=== PATIENT | male | born 1960 | race Hispanic/Latino ===

== ENCOUNTER 2017-02-20 10:51 | Emergency (ER) | payer OTHER, SELFPAY ==
[2017-02-20] MEDS ORDERED: predniSONE 20 MG TAB ONE (12:49)
--- NOTE | 2017-02-20 14:56 | RAD ---
PA AND LATERAL CHEST XRAY: DATE: 02/20/17. HISTORY: Chest pain. COMPARISON: 04/16/16. FINDINGS: There is a nodular density in the left mid lung zone which is most likely attributable to a nipple sh adow. Lungs are otherwise clear. Cardiac silhouette and pulmonary vasculature are within normal dyer its. There has been no other interval change from prior exam. IMPRESSION: Nodular density left mid lung zone most likely attributable to a nipple shadow, but followup chest x- ray with nipple markers in place would be helpful for further evaluation. POS: [facility]
== END 2017-02-20 13:47 | disposition home or self-care (01) ==
LOC: ERS 10:51
DX: J40 Bronchitis, not specified as acute or chronic (principal); F17.210 Nicotine dependence, cigarettes, uncomplicated; G43.909 Migraine, unspecified, not intractable, without status migrainosus
CPT/HCPCS: 71020; 94640; J7506; J7620

== ENCOUNTER 2018-07-30 23:31 | Emergency (ER) | payer OTHER, SELFPAY ==
[2018-07-30] MEDS ORDERED: Lidocaine 1% (PF) 30 ML VIAL ONE (23:47)
[2018-07-31] MEDS ORDERED: Bacitracin Zinc 1 Packet ONE ×2 (00:43)
[2018-07-31] MEDS ORDERED: Adacel (T-DAP) 0.5 ML SYRINGE ONE (01:13)
== END 2018-07-31 00:36 | disposition home or self-care (01) ==
LOC: ERS 23:31
DX: M65.4 Radial styloid tenosynovitis [de Quervain] (principal)
CPT/HCPCS: 12001; 90471; 90715; J2001